=== PATIENT | female | born 1985 | race African-American/Black ===

== ENCOUNTER 2016-09-27 01:07 | Emergency (ER) | payer OTHER ==
[~2016-09-27] VITALS: Ht 157.5 cm; Wt 106.9 kg
[~2016-09-27 01:07] MED LIST: AMOXICILLIN500 M1 PO; ANAPROX DS550 M1 PO; ANTIBIOTIC; ATARAX,VISTARIL25 MG PO; AZITHROMYCIN250 MG PO; CYCLOBENZAPRINE10 MG PO; DICLOFENAC SODI75 MG PO; GABAPENTIN300 MG PO; HYDROCODON-ACE1 EAC7 PO; INDOCIN25 MG PO; LEXAPRO10 MG PO; LIDODERM 5% P1 PATCH TD; MEDROL DOSEPAK4 MG PO; MOBIC7.5 MG PO; NAPROSYN500 MG PO; NAPROXEN500 MG PO; NOHOMEMEDS; PARAGARD T 3801 EAC1 IY; PEN-VEE K,VEET250 MG PO; PERCOCET 10/1 TABLET PO; PERCOCET 5/31 TABLET PO; PREDNISONE10 M1 PO; PREDNISONE10 MG PO; PREDNISONE20 MG PO; PREDNISONE50 MG PO; PYRIDIUM200 MG PO; ROBITUSSIN AC,T10 ML PO; TESSALON200 MG PO; TIZANIDINE HCL4 MG PO; VALIUM2 MG PO; VALIUM5 MG PO; VENTOLIN HFA18 GM IH; VICODIN 5-3001 EACH PO; VOLTAREN75 MG PO; ZANAFLEX4 MG PO; ZOFRAN4 MG PO
[2016-09-27 02:56] LABS: INFLUENZA A VIRAL ANTIGEN NEGATIVE; INFLUENZA B VIRAL ANTIGEN NEGATIVE
[2016-09-27] MEDS ORDERED: MEDROL DOSEPAK4 MG PO (03:10)
[2016-09-27] MEDS ORDERED: ZITHROMAX Z-PA250 MG PO (03:10)
[2016-09-27] MEDS ORDERED: VENTOLIN HFA18 GM IH (03:10)
[2016-09-27 03:30] VITALS: BP 124/78
== END 2016-09-27 03:36 | disposition home or self-care (01) ==
LOC: EXP 01:07 → EME 01:07 → EXP 03:36
PROVIDERS: Physician Assistant
DX: J20.9 Acute bronchitis, unspecified (principal); G89.29 Other chronic pain; Z79.891 Long term (current) use of opiate analgesic; Z98.1 Arthrodesis status; F17.200 Nicotine dependence, unspecified, uncomplicated
CPT/HCPCS: 71020; 87502; 94640; 99281; 99284; J7512

== ENCOUNTER 2016-11-02 15:31 | Emergency (ER) | payer OTHER ==
[~2016-11-02] VITALS: Ht 157.5 cm; Wt 104.5 kg
[~2016-11-02 15:31] MED LIST changes: +ZITHROMAX Z-PA250 MG PO
[2016-11-02] MEDS ORDERED: MOTRIN800 MG PO (18:07)
[2016-11-02] MEDS ORDERED: PREDNISONE20 MG PO (18:07)
[2016-11-02] MEDS ORDERED: FLEXERIL10 MG PO (18:07)
[2016-11-02 18:21] VITALS: BP 128/82
[2016-11-03] MEDS ORDERED: GABAPENTIN400 MG PO (23:21)
== END 2016-11-02 18:22 | disposition home or self-care (01) ==
LOC: EME 15:31
DX: M54.5 Low back pain (principal); M54.2 Cervicalgia; R51 Headache; V43.62XA Car passenger injured in collision with other type car in traffic accident, initial encounter; J45.909 Unspecified asthma, uncomplicated; G89.29 Other chronic pain; Z98.1 Arthrodesis status; F17.200 Nicotine dependence, unspecified, uncomplicated
CPT/HCPCS: 72040; 72070; 72100; 99281; 99284; J7512

== ENCOUNTER 2016-11-03 23:07 | Emergency (ER) | payer OTHER ==
[~2016-11-03] VITALS: Ht 157.5 cm; Wt 103.0 kg
[~2016-11-03 23:07] MED LIST changes: +FLEXERIL10 MG PO; +MOTRIN800 MG PO
[2016-11-03 23:14] VITALS: BP 125/82
[2016-11-03] MEDS ORDERED: GABAPENTIN400 MG PO (23:21)
[2016-11-04] MEDS ORDERED: VALIUM5 MG PO (00:50)
== END 2016-11-04 01:01 | disposition home or self-care (01) ==
LOC: EME 23:07
DX: M62.838 Other muscle spasm (principal); M54.2 Cervicalgia; Z98.1 Arthrodesis status; F17.200 Nicotine dependence, unspecified, uncomplicated
CPT/HCPCS: 72125; 99281; 99283

== ENCOUNTER 2016-11-23 01:40 | Emergency (ER) | payer OTHER ==
[~2016-11-23] VITALS: Ht 157.5 cm; Wt 105.9 kg
[~2016-11-23 01:40] MED LIST changes: +GABAPENTIN400 MG PO
[2016-11-23 01:43] VITALS: BP 117/87
== END 2016-11-23 02:30 | disposition left against medical advice (07) ==
LOC: EME 01:40
DX: R25.2 Cramp and spasm (principal); Z53.21 Procedure and treatment not carried out due to patient leaving prior to being seen by health care provider

== ENCOUNTER 2016-12-13 15:23 | Emergency (ER) | payer OTHER ==
[~2016-12-13] VITALS: Ht 157.5 cm; Wt 104.1 kg
[2016-12-13 16:38] VITALS: BP 113/77
== END 2016-12-13 16:39 | disposition home or self-care (01) ==
LOC: EME 15:23
DX: M54.5 Low back pain (principal); G89.29 Other chronic pain; F17.200 Nicotine dependence, unspecified, uncomplicated
CPT/HCPCS: 99281; 99284

== ENCOUNTER → 2017-03-28 | Outpatient (CLI) | payer OTHER ==
[~2017-03-28] MED LIST changes: +CYMBALTA60 MG PO; +INDOCIN SR75 MG PO; +ZANAFLEX4 M1 PO
== END | disposition home or self-care (01) ==
LOC: AMB 13:00
DX: M54.5 Low back pain (principal); Z98.1 Arthrodesis status; M79.605 Pain in left leg; M79.604 Pain in right leg
CPT/HCPCS: 62304; 72132

== ENCOUNTER 2017-04-08 10:53 | Emergency (ER) | payer OTHER ==
[~2017-04-08] VITALS: Ht 157.5 cm; Wt 101.8 kg
[2017-04-08 13:54] VITALS: BP 133/84
== END 2017-04-08 13:49 | disposition home or self-care (01) ==
LOC: EME 10:53
DX: M62.830 Muscle spasm of back (principal); G89.29 Other chronic pain; F17.200 Nicotine dependence, unspecified, uncomplicated
CPT/HCPCS: 99281; 99283

== ENCOUNTER 2017-05-13 12:52 | Emergency (ER) | payer OTHER ==
[~2017-05-13] VITALS: Ht 157.5 cm; Wt 102.1 kg
[2017-05-13 17:13] VITALS: BP 104/74
== END 2017-05-13 17:13 | disposition home or self-care (01) ==
LOC: EME 12:52
DX: G89.29 Other chronic pain (principal); M54.41 Lumbago with sciatica, right side; M54.42 Lumbago with sciatica, left side; Z98.1 Arthrodesis status; F17.200 Nicotine dependence, unspecified, uncomplicated
CPT/HCPCS: 99281; 99284

== ENCOUNTER 2017-06-17 23:36 | Emergency (ER) | payer OTHER ==
[~2017-06-17] VITALS: Ht 157.5 cm; Wt 103.8 kg
[2017-06-18] MEDS ORDERED: VALIUM5 MG PO (00:43)
[2017-06-18 01:09] VITALS: BP 135/80
== END 2017-06-18 01:09 | disposition home or self-care (01) ==
LOC: EME 23:36
DX: M62.830 Muscle spasm of back (principal); G89.29 Other chronic pain; M54.5 Low back pain; Z98.1 Arthrodesis status; F17.200 Nicotine dependence, unspecified, uncomplicated
CPT/HCPCS: 99281; 99283

== ENCOUNTER 2017-08-14 23:48 | Emergency (ER) | payer OTHER ==
[~2017-08-14] VITALS: Ht 157.5 cm; Wt 103.1 kg
[2017-08-14 23:49] VITALS: BP 117/80
== END 2017-08-15 01:12 | disposition left against medical advice (07) ==
LOC: EME 23:48
DX: M54.9 Dorsalgia, unspecified (principal); G89.29 Other chronic pain; Z53.21 Procedure and treatment not carried out due to patient leaving prior to being seen by health care provider
CPT/HCPCS: 99281